=== PATIENT | male | born 1955 | race African-American/Black ===

== ENCOUNTER 2020-03-25 03:36 | Observation (INO) ==
[2020-03-25] MEDS ORDERED: hydrALAZINE 20 MG/1 ML VIAL IV PRN (10:47)
[2020-03-25] MEDS ORDERED: GLUCAGON 1 MG VIAL IM PRN (10:47)
[2020-03-25] MEDS ORDERED: ONDANSETRON 4 MG/2 ML VIAL IV PRN (10:47)
[2020-03-25] MEDS ORDERED: DEXTROSE 50% 25 GM/50 ML VIAL IV PRN (10:47)
[2020-03-25] MEDS ORDERED: PANTOPRAZOLE 40 MG TABLET PO SCH (11:00)
[2020-03-25 11:24] LABS: Basophils % 0.3 % (0.0-0.8); Eosinophils % 0.3 % (0.00-10.9); Hematocrit 31.7 VOL% (42.0-52.0); Hemoglobin 10.9 GM/DL (14.0-18.0); Immature Granulocytes % 1.1 %; Immature Granulocytes Absolute 0.07 #; Lymphocytes # 0.5 10*3/uL (1.4-4.0); Lymphocytes % 8.2 % (21.2-54.2); Mean Corpuscular HGB Conc 34.4 GM/DL (32-36); Mean Corpuscular Volume 87.6 FL (87-102); Mean Platelet Volume 11.8 FL (9.6-12.0); Monocytes % 9.1 % (1.7-12.7); Platelet Count 143 T/CUMM (130-400); Red Blood Count 3.62 MC/CUMM (3.8-5.5); Red Cell Distribution Width 21.3 % (9.3-17.3); White Blood Count 6.6 T/CUMM (4-12)
[2020-03-25 11:46] LABS: Albumin 3.1 G/DL (3.4-5.0); Calcium 8.3 MG/DL (8.5-10.1); Osmolality,Calculated 264.2 MOS/KG (273-304); Potassium 3.6 MMOL/L (3.5-5.1); Total Protein 7.3 G/DL (6.4-8.3)
[2020-03-25 13:16] LABS: Hepatitis B Core IgM Quant 0.18 Index; Hepatitis B Surface Ag Quant < 0.10 Index; Hepatitis B Surface Ag Result Negative (Negative); Hepatitis C Virus Ab Quant < 0.02 Index; Hepatitis C Virus Ab Result Negative (Negative)
[2020-03-25] MEDS: LORazepam 2 MG/1 ML VIAL IV PRN (14:04)
[2020-03-25 14:18] LABS: Barbiturates Screen,Urine Negative (Negative); Benzodiazepines Screen,Urine Negative (Negative); Cannabinoid Screen,Urine Negative (Negative); Opiate Screen,Urine Positive (Negative); Phencyclidine Screen,Urine Negative (Negative)
[2020-03-25] MEDS: amLODIPine 10 MG TABLET PO SCH (16:19)
[2020-03-25] MEDS: SODIUM CHLORIDE 0.9% 1,000 ML IV SCH (16:21)
[2020-03-25] MEDS ORDERED: fentaNYL 25 MCG/HR PATCH TRANSDERM SCH (16:30)
[2020-03-25] MEDS: PANTOPRAZOLE 40 MG VIAL IV SCH (16:32)
[2020-03-25] MEDS: LACTULOSE 20 GM/30 ML UDCUP PO SCH (20:44)
[2020-03-25] MEDS: traMADol 50 MG TABLET PO PRN (20:45)
[2020-03-26] MEDS: LORazepam 2 MG/1 ML VIAL IV PRN ×3 (02:20→22:05)
[2020-03-26 05:57] LABS: Basophils % 0.2 % (0.0-0.8); Eosinophils # 0.1 10*3/uL (0.0-0.87); Eosinophils % 1.1 % (0.00-10.9); Hematocrit 31.7 VOL% (42.0-52.0); Hemoglobin 11.1 GM/DL (14.0-18.0); Immature Granulocytes % 1.1 %; Immature Granulocytes Absolute 0.07 #; Lymphocytes # 0.7 10*3/uL (1.4-4.0); Lymphocytes % 10.6 % (21.2-54.2); Mean Corpuscular Volume 86.1 FL (87-102); Mean Platelet Volume 10.9 FL (9.6-12.0); Monocytes % 9.5 % (1.7-12.7); Neutrophils % 77.5 % (38.7-73.9); Platelet Count 137 T/CUMM (130-400); Red Blood Count 3.68 MC/CUMM (3.8-5.5); Red Cell Distribution Width 21.2 % (9.3-17.3); White Blood Count 6.6 T/CUMM (4-12)
[2020-03-26 06:15] LABS: Calcium 8.5 MG/DL (8.5-10.1); Osmolality,Calculated 259.7 MOS/KG (273-304); Potassium 3.4 MMOL/L (3.5-5.1)
[2020-03-26] MEDS: PANTOPRAZOLE 40 MG VIAL IV SCH (09:02)
[2020-03-26] MEDS: amLODIPine 10 MG TABLET PO SCH (09:03)
[2020-03-26] MEDS: THIAMINE 100 MG TABLET PO SCH (09:03)
[2020-03-26] MEDS: MULTIVITAMIN (CENTRUM) TABLET PO SCH (09:03)
[2020-03-26] MEDS: LACTULOSE 20 GM/30 ML UDCUP PO SCH ×2 (09:03→22:06)
[2020-03-26] MEDS: POTASSIUM CHLORIDE 20 MEQ TABLET PO PRN ×2 (09:03→12:35)
[2020-03-26] MEDS: FOLIC ACID 1 MG TABLET PO SCH (09:07)
[2020-03-26] MEDS: ENOXAPARIN 40 MG/0.4 ML SYRINGE SUBCUT SCH (12:36)
[2020-03-26] MEDS: traMADol 50 MG TABLET PO PRN ×2 (12:36→22:06)
[2020-03-27 06:08] LABS: Bilirubin,Total 1.4 MG/DL (0.2-1.0); Calcium 8.9 MG/DL (8.5-10.1); Osmolality,Calculated 254.9 MOS/KG (273-304); Potassium 3.5 MMOL/L (3.5-5.1); Total Protein 7.5 G/DL (6.4-8.3)
[2020-03-27] MEDS: MULTIVITAMIN (CENTRUM) TABLET PO SCH (08:50)
[2020-03-27] MEDS: LACTULOSE 20 GM/30 ML UDCUP PO SCH (08:50)
[2020-03-27] MEDS: THIAMINE 100 MG TABLET PO SCH (08:51)
[2020-03-27] MEDS: amLODIPine 10 MG TABLET PO SCH (08:51)
[2020-03-27] MEDS: FOLIC ACID 1 MG TABLET PO SCH (08:51)
[2020-03-27] MEDS: ENOXAPARIN 40 MG/0.4 ML SYRINGE SUBCUT SCH (08:52)
[2020-03-27 11:56] VITALS: BP 114/79
[2020-03-27] MEDS: SODIUM CHLORIDE 0.9% 1,000 ML IV SCH ×2 (12:59→13:00)
== END 2020-03-27 15:10 | disposition home or self-care (01) ==
LOC: N.5E → SUATTDRO 05:07
PROVIDERS: ADMIT Internal Medicine; ATTEND Internal Medicine